=== PATIENT | female | born 1995 | race African-American/Black ===

== ENCOUNTER 2023-08-30 18:40 | Emergency (ER) | payer SELFPAY ==
[~2023-08-30] VITALS: Ht 162.6 cm; Wt 59.0 kg
[2023-08-30 18:48] VITALS: BP 150/105; PULSE 82; RESP 14; TEMP 98.2; O2SAT 98
[2023-08-30] MEDS ORDERED: ONDANSETRON 4MG ODT PO ONE (19:00)
[2023-08-30] MEDS ORDERED: KETOROLAC 15MG/ML VIAL IM ONE (19:00)
[2023-08-30 19:30] LABS: HEMATOCRIT 40.7 % (36.0-48.0); HEMOGLOBIN 13.7 g/dL (12.0-16.0); MEAN CORPUSCULAR HGB CONC 33.6 g/dL (31.0-37.0); MEAN CORPUSCULAR VOLUME 92.3 fL (81.0-99.0); PLATELET 221 x1000/uL (130-400); RED BLOOD CELL COUNT 4.41 mill/uL (4.2-5.4); RED CELL DISTRIBUTION WIDTH 13.9 % (11.6-14.6); WHITE BLOOD COUNT 8.9 x1000/uL (4.5-11.0)
[2023-08-30 19:33] LABS: CHLORIDE 105 mEq/L (98-107); POTASSIUM 3.4 mEq/L (3.5-5.1); SODIUM 136 mEq/L (136-145)
[2023-08-30 19:34] LABS: CARBON DIOXIDE 26 mEq/L (21-32)
[2023-08-30 19:35] LABS: CALCIUM 10.5 mg/dL (8.7-10.4)
[2023-08-30 19:39] LABS: CREATININE 0.9 mg/dL (0.6-1.0); GLUCOSE 91 mg/dL (70-105)
[2023-08-30 19:40] LABS: UREA NITROGEN BLOOD 13 mg/dL (9-23)
[2023-08-30 19:41] LABS: ALANINE AMINOTRANSFERASE 11 IU/L (10-49); ASPARTATE AMINOTRANSFERASE 21 IU/L (<34)
[2023-08-30 19:42] LABS: BILIRUBIN TOTAL 1.3 mg/dL (0.1-1.0); PROTEIN TOTAL 8.2 g/dL (6.0-8.3)
[2023-08-30] MEDS ORDERED: POTASSIUM CHLORIDE 20MEQ TABLET SR PO NR (20:15)
== END 2023-08-30 22:21 | disposition left against medical advice (07) ==
LOC: ER 18:40
DX: R53.1 Weakness (principal); J45.909 Unspecified asthma, uncomplicated
CPT/HCPCS: 36415; 80053; 85027; 99283

== ENCOUNTER 2023-10-23 00:48 | Emergency (ER) | payer MEDICAID ==
[~2023-10-23] VITALS: Ht 167.6 cm; Wt 69.0 kg
[2023-10-23 00:53] VITALS: O2SAT 98
[2023-10-23] MEDS: ONDANSETRON 4MG ODT PO ONE (02:25)
[2023-10-23 02:26] VITALS: BP 121/84; PULSE 84; RESP 14; TEMP 98.7
[2023-10-23] MEDS: MORPHINE SULFATE 4 MG/ML INJ (FOR IV/IM USE) IM ONE (02:26)
== END 2023-10-23 03:15 | disposition home or self-care (01) ==
LOC: ER 00:48
DX: S89.91XA Unspecified injury of right lower leg, initial encounter (principal); J45.909 Unspecified asthma, uncomplicated; G89.18 Other acute postprocedural pain; X58.XXXA Exposure to other specified factors, initial encounter; Y93.89 Activity, other specified; Y92.89 Other specified places as the place of occurrence of the external cause; Y99.8 Other external cause status
CPT/HCPCS: 93971; 96372; 99285; Q0162; J2270; Z7610